=== PATIENT | female | born 1955 | race Caucasian/White ===

== ENCOUNTER → 2017-12-04 08:54 | Outpatient (CLI) | payer MEDICARE, SELFPAY ==
[2017-12-04 10:00] LABS: Add Manual Diff / Slide Review NO; Basophils Percent Auto 0.9 % (0-2); Eosinophils Percent Auto 2.4 % (2-4); Hematocrit 42.1 % (36-46); Hemoglobin 14.3 g/dL (12.0-16.0); Lymphocytes Percent Auto 11.6 % (25-40); Mean Corpuscular HGB Conc 33.9 % (30-36); Mean Corpuscular Hemoglobin 34.9 PG (26-34); Monocytes Percent Auto 11.8 % (3-14); Neutrophils Absolute Auto 4600 /uL (3000-5900); Neutrophils Percent Auto 73.3 % (50-75); Platelet Count 325 X10^3/uL (150-400); Red Blood Cell Count 4.09 X10^6/uL (4.0-5.2); White Blood Cell Count 6.3 X10^3/uL (4.5-11.0)
[2017-12-04 10:12] LABS: Alanine Aminotransferase 25 IU/L (9-52); Albumin 3.9 g/dL (3.5-5.0); Albumin Globulin Ratio 1.4 (1.0-2.8); Alkaline Phosphatase 91 U/L (38-126); Aspartate Aminotransferase 20 IU/L (14-36); BUN Creatinine Ratio 17.5 (6-22); Bilirubin Total 0.4 mg/dL (0.2-1.3); Blood Urea Nitrogen 14 mg/dL (7-17); Calcium 9.6 mg/dL (8.4-10.2); Carbon Dioxide 32 mmol/L (22-32); Chloride 101 mmol/L (98-107); Estimated Glomerular Filt Rate > 60.0 mL/min (>60); Globulin 2.7 g/dL (1.7-4.1); Glucose 106 mg/dL (80-110); HEMOLYSIS < 15 (0-50); Sodium 140 mmol/L (137-145); Total Protein 6.6 g/dL (6.3-8.2)
--- NOTE | 2017-12-04 10:18 | DI.CT.S_ITS ---
PROCEDURE: CT CHEST ABD PEL W CON INDICATIONS: SURVEILLANCE LYMPHOMA TECHNIQUE: After the administration of oral and intravenous contrast, 5 mm thick sections acquired from the lung apices to the symphysis. 5 mm coronal and sagittal reformats were performed, with additional 7 mm coronal MIP reformats through the lungs. For radiation dose reduction, the following was used: automated exposure control, adjustment of mA and/or kV according to patient size. COMPARISON: [facility], [place], PET/CT SKULL BASE TO MID THIGH, 05/31/2017, 9:57. [facility], CT, ABDOMEN/PELVIS WITH CONTRAST, 04/18/2016, 9:21. [facility], CT, ABDOMEN/PELVIS WITH CONTRAST, 11/20/2016, 10:38. [facility], CT, ABDOMEN/PELVIS WITH CONTRAST, 10/03/2015, 10:23. [facility], CT, ABDOMEN W&WO CONTRAST, 05/18/2015, 9:58. [facility], CT, ABDOMEN WITH CONTRAST, 03/11/2017, 10:38. [facility], CT, CHEST/ABD/PEL WITH CONTRAST, 05/24/2015, 9:54. FINDINGS: Image quality: Excellent. CHEST: Lungs and pleura: No acute airspace opacities. No pleural effusions or pneumothorax. Central and peripheral airways appear patent and normal in caliber. Mediastinum: Heart size is normal. No pericardial effusion. No mediastinal or hilar adenopathy by size criteria. Thoracic aorta and central pulmonary arteries are normal in size. Esophagus is normal in caliber. No hiatal hernia. Chest wall: There is a left Port-A-Cath, the tip of which is at the cavoatrial junction. No axillary or supraclavicular adenopathy by size criteria. Thyroid gland is unremarkable. ABDOMEN: Solid organs: Liver is normal in size and enhancement. Gallbladder is unremarkable. Biliary system is non dilated. Pancreas enhances normally. The spleen is absent and multiple small splenules are present in the splenic fossa. An intermediate density 8 mm diameter right adrenal gland nodule is unchanged when compared with the study dated 10/03/15 and may represent a small adenoma. No left adrenal nodules. Kidneys demonstrate normal size and enhancement, without hydronephrosis. There 2-3 mm diameter nonobstructing renal calculi bilaterally. There is a left upper pole subcentimeter renal cysts. Peritoneum and bowel: Bowel loops demonstrate normal wall thickness and caliber. The appendix is thin walled and contrast-filled. No free fluid or air. Nodes and vessels: No retroperitoneal adenopathy. Fat stranding at the mesenteric root is redemonstrated, similar to multiple prior studies. 2 adjacent lobulated soft tissue masses within the left abdomen and a soft tissue nodule within the anterior pelvis are unchanged when compared with the study dated 04/18/16. These nodules did not demonstrate increased metabolic activity on the PET CT dated 05/31/17. Subcentimeter left lower quadrant soft tissue nodules are also redemonstrated. Aorta and inferior vena cava are normal in size. There are scattered atheromatous calcifications throughout the aorta and iliac arteries bilaterally. Miscellaneous: No ventral hernias. PELVIS: Genitourinary: Bladder wall thickness is normal. Miscellaneous: No inguinal hernias or adenopathy. Bones: No suspicious bony lesions. No vertebral body compression fractures. IMPRESSION: 1. Intraperitoneal soft tissue nodules unchanged from multiple prior studies and redemonstrated on the current scan. Of note, these did not demonstrate metabolic activity on the PET CT dated 05/31/17. 2. No new adenopathy or suspicious lesions to suggest tumor recurrence. 3. Nonobstructing nephrolithiasis. Dictated by: Sabiha Lu M.D. on 12/04/2017 at 12:54 Approved by: Sabiha Lu M.D. on 12/04/2017 at 13:06
[2017-12-04 10:44] LABS: Lactate Dehydrogenase 451 U/L (313-618)
== END ==
PROVIDERS: Nurse Practitioner Gerontology; PCP Physician Assistant; Visit Provider Internal Medicine Hematology & Oncology
DX: C85.18 Unspecified B-cell lymphoma, lymph nodes of multiple sites (principal); N20.0 Calculus of kidney
CPT/HCPCS: 36415; 71260; 74177; 80053; 83615; 85025; Q9967

== ENCOUNTER → 2018-06-25 14:00 | Outpatient (CLI) | payer MEDICARE, SELFPAY ==
--- NOTE | 2018-06-25 14:01 | DI.US.S_ITS ---
PROCEDURE: US PELVIC COMPLETE INDICATIONS: abnormal vaginal discharge TECHNIQUE: Real-time scanning was performed of the pelvic organs, with image documentation. Additional endovaginal scanning was necessary due to incomplete visualization of the adnexal and endometrial structures by transabdominal scanning. COMPARISON: None. FINDINGS: Transabdominal scanning: Limited scanning through the kidneys shows no hydronephrosis. No pathologic free abdominal or pelvic fluid. Incidental mode is made of a nonobstructive stone at the lower pole of the right kidney at 4.5 mm and measuring 6.1 mm at the upper pole of the left kidney Endovaginal scanning: Uterus: Uterus is normal in size at 2.5 x 4.2 by 6.1 cm. The endometrium measures 4.5 mm in combined thickness. There is an myometrial fibroid measuring 1.0 x 1.0 x 1.2 cm on the right posteriorly Ovaries: Normal bilaterally measuring 1.7 x 0.8 x 1.0 cm on the right and 1.6 x 0.9 x 1.2 cm on the left IMPRESSION: Single small uterine fibroid noted posteriorly on the right measuring only 1.2 cm in maximal dimension. Endometrial lining is normal in thickness at 4.5 mm. Ovaries bilaterally appear normal. Note is made of bilateral nonobstructive calculi involving the kidneys inferiorly measuring 4.5 mm on the right and superiorly measuring 6.1 mm on the left. Dictated by: Aman Malone M.D. on 06/25/2018 at 16:58 Approved by: Aman Malone M.D. on 06/25/2018 at 17:07
== END ==
PROVIDERS: Family Provider Physician Assistant; PCP Physician Assistant; Visit Provider Physician Assistant
DX: N89.8 Other specified noninflammatory disorders of vagina (principal); D25.9 Leiomyoma of uterus, unspecified; N20.0 Calculus of kidney
CPT/HCPCS: 76830; 76856

== ENCOUNTER → 2018-08-02 11:48 | Outpatient (CLI) | payer MEDICARE, SELFPAY | PROVIDERS: Family Provider Physician Assistant; PCP Physician Assistant; Visit Provider Physician Assistant | DX: R07.0 Pain in throat (principal) | CPT/HCPCS: 87070 ==

== ENCOUNTER → 2018-08-12 16:09 | Outpatient (CLI) | payer MEDICARE, SELFPAY | PROVIDERS: Family Provider Physician Assistant; PCP Physician Assistant; Visit Provider Obstetrics & Gynecology ==

== ENCOUNTER → 2019-01-14 12:17 | Outpatient (CLI) | payer MEDICARE, SELFPAY ==
--- NOTE | 2019-01-14 12:22 | DI.RAD.S_ITS ---
PROCEDURE: XR SHOULDER RT MIN 2V INDICATIONS: h/o lymphoma, right shoulder pain TECHNIQUE: 3 views of the shoulder were acquired. COMPARISON: [facility], , SHOULDER MINIMUM 2VIEW RIGHT, 11/10/2015, 15:08. FINDINGS: Bones: No acute fractures or dislocations. No suspicious bony lesions. There is mild-moderate hypertrophic osteoarthritic changes of the right acromioclavicular joint. Coracoclavicular and acromioclavicular intervals are maintained. Visualized ribs appear intact. Soft tissues: No suspicious soft tissue calcifications. IMPRESSION: Right shoulder without acute radiographic abnormalities or suspicious intraosseous lesions. Mild to moderate right acromioclavicular osteoarthrosis. Dictated by: Jose De La Paz M.D. on 01/14/2019 at 13:48 Approved by: Jose De La Paz M.D. on 01/14/2019 at 13:49
== END ==
PROVIDERS: Family Provider Physician Assistant; PCP Physician Assistant
DX: C85.18 Unspecified B-cell lymphoma, lymph nodes of multiple sites (principal); M25.511 Pain in right shoulder; M19.011 Primary osteoarthritis, right shoulder
CPT/HCPCS: 73030

== ENCOUNTER 2019-05-14 08:38 | Day surgery (SDC) | payer MEDICARE, SELFPAY ==
--- NOTE | 2019-05-14 | PATH_ITS ---
[facility] Accession Number: [id number] . 01 Material submitted: . colon - COLON POLYP AT 30 CM . 02 Diagnosis: Colon, Polyp at 30 cm, Biopsy: Hyperplastic polyp. V 05/15/2019 1256 Local . 02 Electronically signed: . Gypsy Mar MD, Pathologist NPI- [id number] . 01 Gross description: . COLON POLYP AT 30 CM: Received in formalin are 3 fragment(s) of sotomayor, soft tissue measuring 0.1 x 0.1 x 0.1 cm to 0.3 x 0.2 x 0.2 cm submitted entirely in 1 cassette(s) [place] [place] 05/14/2019 1923 Local . 02 Pathologist provided ICD-10: K63.5 . 02 CPT . 986423 Performed at: 01 [facility] [address] [id number] MD Adrian Watkins MD Phone: [phone] Performed at: 02 [facility] [address] [place], [place] [id number] MD Gypsy Mar MD Phone: [phone]
[2019-05-14] MEDS: SODIUM CHLORIDE 0.9% 1,000 ML 200 ML IV (08:51)
[2019-05-14 09:02] VITALS: BP 120/83; PULSE 95; RESP 16; TEMP 36.6; O2SAT 99; BMI 24.3
--- NOTE | 2019-05-14 09:33 | PM.HP.1 ---
History of Present Illness History of Present Illness Date Patient Seen: 05/14/19 Time Patient Seen: 09:34 Chief complaint: 01125 Narrative: Patient is a woman here for screening colonoscopy. Her last exam was 5 years ago. She has a personal history of polyps and a brother of colon cancer. Patient History Medical History Anxiety (Chronic ~2014) Carpal tunnel syndrome (Chronic ~1999) Chicken pox (Resolved) Depression (Chronic) Hemorrhoid (Chronic) Kidney stones (Chronic) Lymphoma (Chronic) Measles (Resolved) Mumps (Resolved) Osteoarthritis (Chronic ~1999) Polio (Resolved) Restless leg syndrome (Chronic ~2001) Rosacea (Chronic) Surgical History Anesthesia (Resolved) Colon polyps (Resolved ~2012) History of lymph node excision (Resolved ~2014) History of splenectomy (Resolved ~1969) History of surgery (Resolved ~2014) Status post endometrial ablation (Resolved ~1999) Family & Social History Family History Father History of heart disease Mother Diabetes mellitus History of heart disease Hypertension Brother Cancer Sister Cervical cancer Grandfather History of heart disease Grandmother No problems noted. Grandfather No problems noted. Grandmother No problems noted. Family/Other Cancer Social History: household members spouse Tobacco & Substance use: Smoking Status Current every day smoker alcohol intake current Meds Home Medications and Allergies Home Medications Medication Instructions Recorded Confirmed Type ibuprofen 800 mg PO TIDP PRN #90 tab 06/24/18 05/14/19 Rx mometasone 0.1 % topical cream 1 applictn TOP DAILY PRN gram 12/18/18 05/14/19 History bupropion HCl 300 mg 24 hr tablet, 300 mg PO QDAY #30 tab 03/11/19 05/14/19 Rx extended release olmesartan 20 1 tab PO DAILY #30 tab 03/11/19 05/14/19 Rx mg-hydrochlorothiazide 12.5 mg tablet paroxetine HCl 20 mg tablet 40 mg PO DAILY #60 tab 03/11/19 05/14/19 Rx Allergies Allergy/AdvReac Type Severity Reaction Status Date / Time No Known Drug Allergies Allergy Verified 05/14/19 08:35 Review of Systems Review of Systems ROS Unobtainable: All systems reviewed & are unremarkable except as noted in HPI and below Hematologic/Lymphatic Comments: Patient completed treatment for lymphoma about 2 years ago Exam Vital Signs (past 8 hours): - 05/14/19 09:02 Temperature 97.8 F Pulse Rate 95 H Respiratory Rate 16 Blood Pressure 120/83 Pulse Oximetry 99 Oxygen Delivery Method Room Air Narrative Exam Narrative: Pleasant cooperative patient no apparent distress. Lungs are clear to auscultation. No rales or rhonchi. Heart regular rate and rhythm no murmur gallop. Abdomen is soft nontender without mass. No obvious hernias. Patient is alert and oriented x3. Assessment & Plan Assessment & Plan narrative: The patient for a screening colonoscopy. I have discussed the procedure with them. Risks of bleeding, perforation which would necessitate major operation, failure to find remove all lesions, the potential tattoo were all discussed. All questions were answered. They wished to proceed.
--- NOTE | 2019-05-14 09:38 | PM.PREOP ---
Pre-operative Note Interval Note History & Physical reviewed/Exam performed by Physician: Yes Changes to H&P: No ASA Class (for procedural sedation): II
--- NOTE | 2019-05-14 10:18 | PM.OP.ENDO ---
Operative Date/Time/Diagnoses Date of procedure: 05/14/19 Time of procedure: 10:18 Pre-op diagnosis: Screening exam. Last exam 5 years ago. Family history of colon cancer and history of polyps. Post-op diagnosis: same (Polyp at 30 cm) Procedure & Clinicians Study performed: Colonoscopy with cold biopsy Same procedure as scheduled: Yes Indications: Screening Surgeon: Dylon Menjivar Procedure Notes SCOAP/Timeout: Performed Procedure in detail: The patient was placed in the left lateral decubitus position and underwent IV sedation directed by the surgeon consisting of fentanyl and Versed. Digital exam was unremarkable. The scope was inserted and advanced through the rectum into the sigmoid, descending, transverse, and ascending colon. Small polyp at 30 cm from the anal verge was identified removed on the way in.. The cecum was reached identified by the ileocecal valve and the appendiceal opening. The ileocecal valve was successfully cannulated. The terminal ileum was normal in appearance. The scope was gradually brought out. No other Polyps were found. The scope ultimately was retroflexed in the rectum. The appearance was normal. The scope was removed and the patient tolerated the procedure well. Prep was very good. Patient was uncomfortable during the procedure and consideration should be given to providing deep sedation in the future Scope withdrawal time: 6-1/2 minutes Sedation minutes: 21 Findings: polyp (One small polyp at 30 cm) Specimen(s): other (Polyps) Complications: none Post-procedure Recommendations: Colonscopy in 5 years (Due to family history of colon cancer and personal history of polyps) Follow up: as needed Disposition: PACU
[2019-05-14] MEDS: MIDAZOLAM 5 MG/5 ML VIAL IV (10:20)
[2019-05-14 10:21] VITALS: BP 107/74; PULSE 86; RESP 12; TEMP 36.5; O2SAT 92
[2019-05-14] MEDS: fentaNYL 250 MCG/5 ML INJ IV (10:21)
[2019-05-14 10:26] VITALS: BP 111/75; PULSE 82; RESP 12; O2SAT 92
[2019-05-14 10:31] VITALS: BP 121/90; PULSE 79; RESP 12; O2SAT 93
[2019-05-14 10:33] VITALS: PULSE 77; RESP 14; TEMP 36.2; O2SAT 92
[2019-05-14 11:20] VITALS: BP 126/80; PULSE 73; RESP 16; TEMP 36.4; O2SAT 100
== END 2019-05-14 11:51 | disposition home or self-care (01) ==
PROVIDERS: PCP Physician Assistant; Visit Provider Specialist
PROC: 0DJD8ZZ Inspection of Lower Intestinal Tract, Via Natural or Artificial Opening Endoscopic (ICD-10-PCS; CPT 45378; principal; 2019-05-14 09:45)
DX: Z12.11 Encounter for screening for malignant neoplasm of colon (principal); Z86.010 Personal history of colon polyps; Z80.0 Family history of malignant neoplasm of digestive organs; F41.9 Anxiety disorder, unspecified; F32.9 Major depressive disorder, single episode, unspecified; F17.210 Nicotine dependence, cigarettes, uncomplicated; K63.5 Polyp of colon
CPT/HCPCS: 45380; 99152; J2250; J3010

== ENCOUNTER → 2019-07-17 08:25 | Outpatient (CLI) | payer MEDICARE, SELFPAY ==
--- NOTE | 2019-07-17 08:26 | DI.CT.S_ITS ---
PROCEDURE: CT CHEST ABD PEL W CON INDICATIONS: follicular lymphoma, DLBCL TECHNIQUE: After the administration of oral and intravenous contrast, 5 mm thick sections acquired from the lung apices to the symphysis. 5 mm coronal and sagittal reformats were performed, with additional 7 mm coronal MIP reformats through the lungs. For radiation dose reduction, the following was used: automated exposure control, adjustment of mA and/or kV according to patient size. COMPARISON: [facility], CT, ABDOMEN/PELVIS WITH CONTRAST, 11/20/2016, 10:38. [facility], [place], PET/CT SKULL BASE TO MID THIGH, 05/31/2017, 9:57. [facility], CT, CT CHEST ABD PEL W CON, 12/04/2017, 10:14. FINDINGS: Image quality: Excellent. CHEST: Lungs and pleura: There is biapical scarring. No acute airspace opacities. No pleural effusions or pneumothorax. Central and peripheral airways appear patent and normal in caliber. Mediastinum: Heart size is normal. No pericardial effusion. No mediastinal or hilar adenopathy by size criteria. Thoracic aorta and central pulmonary arteries are normal in size. Esophagus is normal in caliber. No hiatal hernia. Chest wall: No axillary or supraclavicular adenopathy by size criteria. Thyroid gland is within normal limits. Left chest wall Port-A-Cath tip is in SVC. ABDOMEN: Solid organs: Liver is normal in size and enhancement. Mild hepatic steatosis is seen. Gallbladder is within normal limits. There is no intrahepatic biliary ductal dilatation. Prominent common bile duct is seen and measures up to 1.4 cm in diameter in proximal to mid common bile. No intraluminal filling defect is seen. Pancreas enhances normally. Spleen is normal in size and enhancement. Thickened left adrenal gland is again seen, not significantly changed from prior study. Previously described 8 mm inferior right adrenal nodule is unchanged and likely represent adrenal adenoma.. Kidneys demonstrate normal size and enhancement, without hydronephrosis. Bilateral nonobstructing renal calculi are again seen and measures up to 4.5 mm in size in the pole of left kidney. Peritoneum and bowel: Bowel loops demonstrate normal wall thickness and caliber. No free fluid or air. Mild fecal stasis in the colon is seen. There is questionable proximal to mid gastric wall thickening, which may be due to underdistention. No definite discrete gastric wall mass is seen. Nodes and vessels: No retroperitoneal adenopathy by size criteria. Previously described mild stranding near mesenteric root is essentially unchanged. Previously described 2 adjacent lobulated soft tissue masses within left abdomen and in left anterior lower pelvis remains unchanged in size and appearance, measures up to 2.6 x 1.8 cm in size anterior to the ascending colon. Left anterior lower pelvic nodule measures 1.4 x 1.1 cm in size. Aorta and inferior vena cava are normal in size. Miscellaneous: No ventral hernias. PELVIS: Genitourinary: Bladder wall thickness is normal. Miscellaneous: No inguinal hernias or adenopathy. Bones: No suspicious bony lesions. No vertebral body compression fractures. IMPRESSION: 1. Stable appearing peritoneal soft tissue masses not significantly changed in size and appearance from prior studies and show no increased metabolic activity on previous PET CT scan. 2. Stable ectasia of proximal to mid common bile duct also unchanged from prior studies. 3. No gross lymphadenopathy is seen in chest, abdomen or pelvis. Dictated by: Glenn Osborne M.D. on 07/17/2019 at 10:09 Approved by: Yann Winston M.D. on 07/17/2019 at 12:13
== END ==
PROVIDERS: PCP Physician Assistant; Referring Provider Internal Medicine Hematology & Oncology; Visit Provider Internal Medicine Hematology & Oncology
DX: C83.38 Diffuse large B-cell lymphoma, lymph nodes of multiple sites (principal); K76.0 Fatty (change of) liver, not elsewhere classified; E27.9 Disorder of adrenal gland, unspecified; N20.0 Calculus of kidney
CPT/HCPCS: 71260; 74177; Q9967

== ENCOUNTER → 2021-03-22 14:24 | Outpatient (CLI) | payer MEDICARE, SELFPAY ==
[2021-03-22 15:01] LABS: COVID19 -Nasal RAPID Negative (Negative)
== END ==
PROVIDERS: PCP Registered Nurse Diabetes Educator; Visit Provider Physician Assistant
DX: Z20.822 Contact with and (suspected) exposure to COVID-19 (principal)
CPT/HCPCS: 87635

== ENCOUNTER → 2021-03-22 14:57 | Outpatient (CLI) | payer MEDICARE, SELFPAY ==
--- NOTE | 2021-03-22 14:58 | DI.RAD.S_ITS ---
PROCEDURE: XR CHEST 2V INDICATIONS: Cough x1mo, bronchitis vs PNA? hx of lymphoma TECHNIQUE: 2 views of the chest were acquired. COMPARISON: None. FINDINGS: Surgical changes and devices: None. Lungs and pleura: Lungs are clear. No pleural effusions or pneumothorax. Mediastinum: Mediastinal contours are normal. Heart size is normal. Bones and chest wall: No suspicious bony abnormalities. Soft tissues appear unremarkable. IMPRESSION: No acute cardiopulmonary process demonstrated radiographically. Dictated by: Adrián Mccabe M.D. on 03/22/2021 at 14:08 Approved by: Adrián Mccabe M.D. on 03/22/2021 at 14:08
== END ==
PROVIDERS: PCP Registered Nurse Diabetes Educator; Referring Provider Registered Nurse Diabetes Educator; Visit Provider Registered Nurse Diabetes Educator
DX: J06.9 Acute upper respiratory infection, unspecified (principal); Z20.822 Contact with and (suspected) exposure to COVID-19; Z85.72 Personal history of non-Hodgkin lymphomas
CPT/HCPCS: 71046; 87635

== ENCOUNTER → 2021-03-30 10:30 | Outpatient (CLI) | payer MEDICARE, SELFPAY | PROVIDERS: PCP Registered Nurse Diabetes Educator; Referring Provider Physician Assistant; Visit Provider Physician Assistant | DX: J02.9 Acute pharyngitis, unspecified (principal) | CPT/HCPCS: 87070 ==

== ENCOUNTER → 2022-02-13 12:14 | Outpatient (CLI) | payer MEDICARE, SELFPAY ==
[2022-02-13 13:54] LABS: Influenza A - CEPHEID Flu A NEGATIVE (NEGATIVE); Influenza B - CEPHEID Flu B NEGATIVE (NEGATIVE); Respiratory Syncytial Virus Negative (Negative)
[2022-02-13 14:17] LABS: COVID-19 CEPHEID PCR (VTM/NP) Negative (Negative)
== END ==
PROVIDERS: PCP Registered Nurse Diabetes Educator; Visit Provider Student in an Organized Health Care Education/Training Program
DX: R05.9 Cough, unspecified (principal)
CPT/HCPCS: 0241U

== ENCOUNTER → 2022-02-13 12:51 | Outpatient (CLI) | payer MEDICARE, SELFPAY ==
--- NOTE | 2022-02-13 12:57 | DI.RAD.S_ITS ---
PROCEDURE: XR CHEST 2V INDICATIONS: productive cough x 7days worsening, lymphoma/smoknghx TECHNIQUE: 2 views of the chest were acquired. COMPARISON: [facility], , XR CHEST 2V, 03/22/2021, 14:51. FINDINGS: Surgical changes and devices: Left Port-A-Cath is unchanged. Lungs and pleura: Lungs are clear. No pleural effusions or pneumothorax. Mediastinum: Mediastinal contours are normal. Heart size is normal. Bones and chest wall: No suspicious bony abnormalities. Soft tissues appear unremarkable. IMPRESSION: No acute cardiopulmonary findings. Dictated by: Sabiha Lu M.D. on 02/13/2022 at 13:36 Approved by: Sabiha Lu M.D. on 02/13/2022 at 13:36
== END ==
PROVIDERS: PCP Registered Nurse Diabetes Educator; Referring Provider Student in an Organized Health Care Education/Training Program; Visit Provider Student in an Organized Health Care Education/Training Program
DX: R05.8 Other specified cough (principal); R53.83 Other fatigue
CPT/HCPCS: 0241U; 71046

== ENCOUNTER → 2022-02-27 18:29 | Outpatient (ROUT) | payer MEDICARE, SELFPAY | PROVIDERS: PCP Registered Nurse Diabetes Educator; Visit Provider Registered Nurse Diabetes Educator | DX: N94.9 Unspecified condition associated with female genital organs and menstrual cycle (principal) | CPT/HCPCS: 87255 ==

== ENCOUNTER → 2022-03-09 08:52 | Outpatient (CLI) | payer MEDICARE, SELFPAY ==
[2022-03-09 09:57] LABS: Add Manual Diff / Slide Review NO; Basophils Absolute Auto 100 /uL (0-100); Basophils Percent Auto 0.6 % (0-2); Eosinophils Absolute Auto 300 /uL (0-450); Eosinophils Percent Auto 2.7 % (2-4); Hematocrit 39.5 % (36-46); Lymphocytes Absolute Auto 1900 /uL (1100-4500); Lymphocytes Percent Auto 15.6 % (25-40); Mean Corpuscular HGB Conc 32.8 % (30-36); Mean Corpuscular Volume 97.7 fL (80-100); Monocytes Absolute Auto 1000 /uL (0-900); Monocytes Percent Auto 8.4 % (3-14); Neutrophils Absolute Auto 8800 /uL (1500-7000); Neutrophils Percent Auto 72.7 % (50-75); Platelet Count 390 X10^3/uL (150-400); Red Blood Cell Count 4.05 X10^6/uL (4.0-5.2); Red Cell Distribution Width 14.7 % (11.6-14.8); White Blood Cell Count 12.1 X10^3/uL (4.5-11.0)
[2022-03-09 10:10] LABS: Alanine Aminotransferase 17 IU/L (<35); Albumin 3.7 g/dL (3.5-5.0); Albumin Globulin Ratio 1.4 (1.0-2.8); Alkaline Phosphatase 82 U/L (38-126); Aspartate Aminotransferase 18 IU/L (14-36); BUN Creatinine Ratio 28.2 (6-22); Bilirubin Total 0.5 mg/dL (0.2-1.3); Blood Urea Nitrogen 29 mg/dL (7-17); Calcium 9.2 mg/dL (8.4-10.2); Carbon Dioxide 30 mmol/L (22-32); Chloride 102 mmol/L (98-107); Cholesterol 179 mg/dL (140-199); Estimated Glomerular Filt Rate > 60 mL/min (>60); Globulin 2.7 g/dL (1.7-4.1); Glucose 99 mg/dL (80-110); HDL Cholesterol 67 mg/dL (40-60); HEMOLYSIS 25 (0-50); LDL Cholesterol Calculated 87 mg/dL (<100); Potassium 4.2 mmol/L (3.4-5.1); Sodium 138 mmol/L (137-145); Total Protein 6.4 g/dL (6.3-8.2); Triglycerides 125 mg/dL (35-150)
[2022-03-09 10:42] LABS: TSH w/ Reflex to FT4 2.66 uIU/mL (0.47-4.68)
== END ==
PROVIDERS: PCP Registered Nurse Diabetes Educator; Referring Provider Registered Nurse Diabetes Educator; Visit Provider Registered Nurse Diabetes Educator
DX: I10 Essential (primary) hypertension (principal)
CPT/HCPCS: 36415; 80053; 80061; 84443; 85025

== ENCOUNTER → 2022-06-01 12:11 | Outpatient (CLI) | payer MEDICARE, SELFPAY ==
--- NOTE | 2022-06-01 12:14 | DI.RAD.S_ITS ---
PROCEDURE: XR KUB INDICATIONS: kidney stones TECHNIQUE: One view of the abdomen acquired. COMPARISON: [facility] Ultrasound, US, US ABDOMEN COMPLETE, 04/04/2022, 14:19. [facility], CT, CT CHEST ABD PEL W CON, 07/17/2019, 9:25. FINDINGS: Surgical changes and devices: None. Bowel: Bowel gas pattern is normal. Soft tissues: No new suspicious abdominal calcifications are present compared to the prior CT scanning from June of 2019. The current study shows a single 2 x 3 mm small calculus in the expected region of the mid right kidney and an 3 mm upper and 2 mm lower pole calculus in the expected region of the collecting system of the left kidney. These have not changed in size from prior CT scanning and remains small overall. Visualized solid organ contours appear normal in size. Bones: No suspicious bony lesions. IMPRESSION: Stable appearing small bilateral nonobstructive calculi involving the mid kidney on the right and the upper and lower thirds of the left kidney. These have not been obstructive on prior CT and ultrasound scanning. Dictated by: Aman Malone M.D. on 06/01/2022 at 14:22 Approved by: Aman Malone M.D. on 06/01/2022 at 14:25
== END ==
PROVIDERS: PCP Registered Nurse Diabetes Educator; Referring Provider Urology; Visit Provider Urology
DX: N20.0 Calculus of kidney (principal)
CPT/HCPCS: 74018

== ENCOUNTER → 2022-06-04 16:04 | Outpatient (CLI) | payer MEDICARE, SELFPAY ==
[2022-06-04 17:08] LABS: BUN Creatinine Ratio 16.7 (6-22); Blood Urea Nitrogen 19 mg/dL (7-17); Carbon Dioxide 31 mmol/L (22-32); Chloride 103 mmol/L (98-107); Estimated Glomerular Filt Rate 53 mL/min (>60); Glucose 76 mg/dL (80-110); HEMOLYSIS < 15 (0-50); Potassium 3.8 mmol/L (3.4-5.1); Sodium 140 mmol/L (137-145)
== END ==
PROVIDERS: PCP Registered Nurse Diabetes Educator; Referring Provider Urology; Visit Provider Urology
DX: R31.29 Other microscopic hematuria (principal); N20.0 Calculus of kidney; F17.200 Nicotine dependence, unspecified, uncomplicated
CPT/HCPCS: 36415; 80048; 81002; 99214

== ENCOUNTER → 2022-06-13 14:58 | Outpatient (CLI) | payer MEDICARE, SELFPAY ==
--- NOTE | 2022-06-13 15:01 | DI.CT.S_ITS ---
PROCEDURE: CT IVP A/P W/WO INDICATIONS: Other microscopic hematuria TECHNIQUE: Optional 5 mm thick noncontrast images acquired from the diaphragm to the symphysis pubis. After the administration of intravenous contrast, 5 mm thick images acquired from the diaphragm to the symphysis pubis after a 10-minute delay. 2 mm thick coronal and sagittal reformats were then performed of the kidneys and ureters. For radiation dose reduction, the following was used: automated exposure control, adjustment of mA and/or kV according to patient size. COMPARISON: [facility], CT, CT CHEST ABD PEL W CON, 07/17/2019, 9:25. FINDINGS: Lower thorax: The lung bases are clear. Heart size normal. No hiatal hernia. Liver: The liver is diffusely decreased in attenuation without focal mass lesion. Biliary system: No calcified cholelithiasis or pericholecystic inflammation. No intra or extrahepatic bile duct dilatation. Pancreas: Unremarkable without mass or inflammation evident. Spleen: Several splenules noted left upper quadrant. Remainder of the spleen is absent Adrenals: Normal morphology and density. Reproductive system: Unremarkable as visualized. Urinary system: Bilateral nonobstructive renal calculi measure up to 4 mm. There is a 1.5 cm left renal hyperdense cyst, slightly enlarged compared to the prior exam. Both kidneys con straightening and straight contrast appropriately without hydronephrosis or obstructing lesion. Gastrointestinal system: Fluid distension and wall thickening the proximal small bowel in the left noted with some mild wall enhancement and small amount of free fluid in the pelvis. No obstruction. Appendix: Normal appendix identified. No evidence of appendicitis. Peritoneal spaces: No mesenteric or retroperitoneal adenopathy. No free air. No free fluid. Peritoneal and soft tissue nodes in the left lower quadrant anterior to the descending colon are similar Vasculature: Aortic atherosclerotic vascular calcification noted without evidence of aneurysm. Abdominal wall: Abdominal wall intact without evidence of ventral or inguinal hernias. Musculoskeletal: Normal bone mineralization. No acute fractures. IMPRESSION: 1. Nonobstructing bilateral renal calculi without hydronephrosis or mass lesion. Stable left renal hyperdense cyst. 2. Stable left lower quadrant peritoneal soft tissue nodules, unchanged from the prior. 3. Proximal small bowel fluid distension with wall enhancement and small amount of free fluid in the pelvis could reflect enteritis if clinically consistent. Approved by: Mitch Sheffield M.D. on 06/13/2022 at 15:47
== END ==
PROVIDERS: PCP Registered Nurse Diabetes Educator; Referring Provider Urology; Visit Provider Urology
DX: N20.0 Calculus of kidney (principal); N28.1 Cyst of kidney, acquired; R31.29 Other microscopic hematuria; R22.2 Localized swelling, mass and lump, trunk
CPT/HCPCS: 74178; Q9967

== ENCOUNTER → 2022-08-13 11:55 | Outpatient (CLI) | payer MEDICARE, SELFPAY ==
--- NOTE | 2022-08-13 11:57 | DI.RAD.S_ITS ---
PROCEDURE: XR KUB INDICATIONS: 2 left-sided kidney stones TECHNIQUE: One view of the abdomen acquired. COMPARISON: [facility], CR, XR KUB, 06/01/2022, 13:21. FINDINGS: Surgical changes and devices: None. Bowel: Bowel gas pattern is normal. Soft tissues: No suspicious abdominal calcifications. Visualized solid organ contours appear normal in size. The known left-sided renal stones are obscured by bowel gas and fecal debris. 3.5 mm stone projects over the superior calyx of the right kidney. Bones: No suspicious bony lesions. IMPRESSION: Known left-sided nephrolithiasis obscured by bowel gas and fecal debris. 3.5 mm right-sided nonobstructing nephrolithiasis. Dictated by: Guy Beatty M.D. on 08/13/2022 at 14:26 Approved by: Guy Beatty M.D. on 08/13/2022 at 14:28
[2022-08-13 21:16] LABS: Appearance Urine UA CLEAR; Bilirubin Urine UA NEGATIVE (NEGATIVE); Color Urine UA YELLOW; Glucose Urine UA NEGATIVE (Negative); Ketones Urine UA NEGATIVE (NEGATIVE); Leukocyte Esterase Urine UA TRACE (NEGATIVE); Nitrite Urine UA NEGATIVE (Negative); Occult Blood Urine UA 2+ (Negative); Protein Urine UA NEGATIVE (Negative); Urobilinogen Urine UA 0.2 E.U./dL (0.2)
[2022-08-13 21:31] LABS: Amorphous Sediment Urine 1+; Bacteria Urine Few (2-10); Culture Indicated Urine Specimen Cultured; RBC Urine 1-5/HPF (0-5/HPF); Squamous Epithelial Cell Urine 1-5 /HPF (0-5/HPF); WBC Urine 5-10/HPF (0-5/HPF)
[2022-08-13 21:32] LABS: pH Urine UA 6.5 (4.5-8.0)
== END ==
PROVIDERS: PCP Registered Nurse Diabetes Educator; Referring Provider Urology; Visit Provider Urology
DX: N20.0 Calculus of kidney (principal); R31.29 Other microscopic hematuria
CPT/HCPCS: 74018; 81001; 87086

== ENCOUNTER 2022-08-21 06:50 | Day surgery (SDC) | payer MEDICARE, SELFPAY ==
[2022-08-21] VITALS (7 sets, daily range): BP systolic 139–168; BP diastolic 84–100; PULSE 66–86; RESP 12–18; TEMP 36.4–36.7; O2SAT 92–98; BMI 23.5
[2022-08-21] MEDS: LACTATED RINGERS 1,000 ML 21 ML IV (07:19)
[2022-08-21] MEDS: SCOPOLAMINE 1 PATCH TOP (07:27)
--- NOTE | 2022-08-21 07:39 | PM.PREOP ---
Pre-operative Note COVID-19 COVID-19 status: Not tested Criteria for continued procedure: Delay expected to result in less-positive ultimate med/surg outcome and Non-surgical alternatives not available or appropriate per current SOC Interval Note History & Physical reviewed/Exam performed by Physician: Yes Changes to H&P: No
[2022-08-21] MEDS: CEFAZOLIN 2 GM/100 ML PREMIX 100 ML IV (07:47)
--- NOTE | 2022-08-21 08:10 | SUR.OPER ---
Lithotomy on ESWL table, head on pillow, arms padded with gel pads and placed at sides. Legs secured in padded ESWL table stirrups. Patient warmed with warm blankets.
--- NOTE | 2022-08-21 08:39 | P.OP_ITS ---
Procedure & Clinicians Procedure: Left extracorporeal shockwave lithotripsy with cystoscopy and left ureteral stent placement. Same procedure as scheduled: Yes Indications: This 67-year-old female who was undergoing workup for hematuria was found to have left-sided stones and presents this time for the above procedure. Surgeon: Valerio Blanchard Click Yes if Unassisted: Yes Anesthesia Type: General Operative Notes Findings: Findings: At cystoscopy external genitalia were normal urethral meatus was normal urethra is normal along its length the right and left ureteral orifices were normal position with clear efflux. There were no mucosal lesions or other abnormalities within the bladder. The stones were noted in the upper portion of the kidney and received 1500 shocks at level 7 appearing to fragment completely. A 7 Ecuadorean by multi length stent was left in good position in the left collecting system without a string. No other abnormalities were noted. Closure Type: not applicable Specimen(s): none sent Prosthetic devices, grafts, tissues, transplants, or devices: Seven Ecuadorean by multi length ureteral stent left collecting system no string Estimated Blood Loss (mL): 0 Blood products transfused: none Procedure in detail: Procedure in detail: After informed consent was obtained, the patient was identified and brought to the operating room where she was placed in the supine position on the Lithotripter. Patient then had anesthesia induced and maintained. Hearing an adequate level anesthesia the patient was then transitioned to the lithotomy position. Once in the lithotomy position she was prepped, draped, prepared for Transurethral procedure. Once again ensuring an adequate level of anesthesia, after time-out and with the patient prepped and draped the cystoscope was inserted through the urethra in the bladder cystoscopy was performed. Once again the left ureteral orifice was identified and a guidewire passed up and into the collecting system under fluoroscopic visualization. With the wire in good position the stent was passed over the wire positioned in the renal pelvis under fluoroscopic visualization and in the bladder under direct vision. With the stent in good position the wire was removed as well as the nylon harness. The position was once again checked and it was excellent therefore the bladder was drained the scope was removed and the stone positioned at F1 via the imaging system. Shockwave were then delivered to the stone up to level 7 for a total of 1500 shocks with periodic reimaging and re localization of the stone to ensure maximal energy delivered to the stone. At 3:00 p.m. shocks shockwave head was rotated out in the stone appeared completely fragmented. At this point the patient was awakened taken to the postanesthesia care unit having tolerated the procedure well. There were no complications the patient will be discharged from the postanesthesia care unit to follow up in my office in approximately 10-14 days. Complications: none Post-operative Condition: stable Disposition: PACU Plan for aftercare: Patient to be discharged to home she is to strain her urine and save any fragments that she collects. At follow-up she will have a KUB.
[2022-08-21] MEDS: ACETAMINOPHEN 325 MG TABLET 975 MG PO (08:59)
[2022-08-21] MEDS: OXYBUTYNIN 5 MG TABLET PO (09:00)
[2022-08-21] MEDS: PHENAZOPYRIDINE 100 MG TABLET 200 MG PO (09:05)
== END 2022-08-21 09:45 | disposition home or self-care (01) ==
PROVIDERS: PCP Registered Nurse Diabetes Educator; Referring Provider Urology; Visit Provider Urology
PROC: (CPT 50590; principal; 2022-08-21 07:45)
PROC: (CPT 52356; 2022-08-21 07:45)
DX: N20.0 Calculus of kidney (principal); R31.29 Other microscopic hematuria; F17.210 Nicotine dependence, cigarettes, uncomplicated
CPT/HCPCS: 52356; J0690; J1100; J2250; J2405; J2704; J3010

== ENCOUNTER → 2022-09-06 11:12 | Outpatient (CLI) | payer MEDICARE, SELFPAY ==
--- NOTE | 2022-09-06 11:13 | DI.RAD.S_ITS ---
PROCEDURE: XR KUB INDICATIONS: Post op ESWL with left ureteral stent placement TECHNIQUE: One view of the abdomen acquired. COMPARISON: [facility], CR, XR KUB, 08/13/2022, 12:01. FINDINGS: Surgical changes and devices: Left ureterovesicular stent is present. Bowel: Bowel gas pattern is normal. Soft tissues: No suspicious abdominal calcifications. No definitive calcifications are noted overlying the renal shadows. The previous 4 mm calcification overlying the right renal shadow is not visualized as cysts area is completely obscured by overlying bowel gas. Visualized solid organ contours appear normal in size. Bones: No suspicious bony lesions. IMPRESSION: Interval ureterovesicular stent without visualized calcifications overlying the renal shadows. Dictated by: Shaye Silva M.D. on 09/06/2022 at 16:39 Approved by: Shaye Silva M.D. on 09/06/2022 at 16:39
== END ==
PROVIDERS: PCP Registered Nurse Diabetes Educator; Referring Provider Urology; Visit Provider Urology
DX: N20.0 Calculus of kidney (principal); R31.29 Other microscopic hematuria; Z96.0 Presence of urogenital implants
CPT/HCPCS: 74018; 81002; 87086

== ENCOUNTER → 2022-09-06 16:13 | Outpatient (CLI) | payer MEDICARE, SELFPAY | PROVIDERS: PCP Registered Nurse Diabetes Educator; Visit Provider Urology | DX: N20.0 Calculus of kidney (principal); R31.29 Other microscopic hematuria | CPT/HCPCS: 87086 ==

== ENCOUNTER → 2022-10-04 13:19 | Outpatient (CLI) | payer MEDICARE, SELFPAY ==
[2022-10-04 14:47] LABS: Calcium 9.1 mg/dL (8.4-10.2); Phosphorous 2.8 mg/dL (2.8-4.1); Uric Acid 5.3 mg/dL (2.5-6.2)
[2022-10-06 12:10] LABS: Calcium 9.2 mg/dL (8.7-10.3); Parathyroid Hormone, Intact 48 pg/mL (15-65)
== END ==
PROVIDERS: PCP Registered Nurse Diabetes Educator; Referring Provider Urology; Visit Provider Urology
DX: N20.0 Calculus of kidney (principal); R31.29 Other microscopic hematuria; Z77.22 Contact with and (suspected) exposure to environmental tobacco smoke (acute) (chronic)
CPT/HCPCS: 36415; 82310; 83970; 84100; 84550

== ENCOUNTER → 2022-11-01 11:34 | Outpatient (CLI) | payer MEDICARE, SELFPAY ==
--- NOTE | 2022-11-01 11:36 | DI.RAD.S_ITS ---
PROCEDURE: XR CHEST 2V INDICATIONS: Increased cough x3 weeks TECHNIQUE: 2 views of the chest were acquired. COMPARISON: [facility], CR, XR CHEST 2V, 02/13/2022, 13:01. [facility], CR, XR CHEST 2V, 03/22/2021, 14:51. FINDINGS: Surgical changes and devices: Left chest wall port tip projects over the cavoatrial junction. Lungs and pleura: Lungs are clear. No pleural effusions or pneumothorax. Mediastinum: Mediastinal contours are normal. Heart size is normal. Bones and chest wall: No suspicious bony abnormalities. Soft tissues appear unremarkable. IMPRESSION: No acute cardiopulmonary process. Dictated by: Guy Beatty M.D. on 11/01/2022 at 12:28 Approved by: Guy Beatty M.D. on 11/01/2022 at 12:28
== END ==
PROVIDERS: PCP Registered Nurse Diabetes Educator; Referring Provider Physician Assistant; Visit Provider Physician Assistant
DX: R05.9 Cough, unspecified (principal)
CPT/HCPCS: 71046

== ENCOUNTER → 2023-04-17 11:28 | Outpatient (CLI) | payer MEDICARE, SELFPAY ==
--- NOTE | 2023-04-17 11:31 | DI.RAD.S_ITS ---
Bone Density Report Name: MATTY ULLOA Age: 68 Sex: Female Ethnicity: White Date of : 1955 Indication: postmenopausal; screening for osteoporosis; history of glucocorticoids; Referring Provider: SERINA CHIU Study: Bone densitometry was performed. Exam Date: April 17, 2023 Accession number: [id number] Bone Density: Region BMD T-score Z-score Classification AP Spine(L1-L4) 0.799 -2.3 -0.4 Osteopenia Femoral Neck (Left) 0.610 -2.2 -0.5 Osteopenia Total Hip (Left) 0.697 -2.0 -0.7 Osteopenia Femoral Neck (Right) 0.595 -2.3 -0.7 Osteopenia Total Hip (Right) 0.674 -2.2 -0.9 Osteopenia Total Hip Mean 0.685 -2.1 -0.8 Osteopenia World Health Organization criteria for BMD impression classify patients as: Normal (T-score at or above -1.0), Osteopenia (T-score between -1.0 and -2.5), or Osteoporosis (T-score at or below -2.5). 10-year Fracture Risk(1): Major Osteoporotic Fracture 19% Hip Fracture 6.8% Reported Risk Factors: [place] (), Neck BMD=0.595, BMI=21.9, smoking, glucocorticoids (1) FRAX(R) Version 3.08. Fracture probability calculated for an untreated patient. Fracture probability may be lower if the patient has received treatment. Impression: The patient has low bone mass, based on the Total Spine T-score. The patient has an estimated ten-year risk of hip fracture of 6.8% and an estimated ten-year risk of major fracture of 19%, based on the WHO FRAX algorithm. The patient has risk factors, including: smoking, history of glucocorticoid therapy. Discussion: BONE DENSITY IS LOW AT ONE OR MORE SKELETAL SITES. THE PATIENT'S BMD AND CLINICAL RISK FACTORS CONTRIBUTE TO THIS PATIENT'S INCREASED RISK OF FRACTURE. This patient's lowest T-score is low at one or more skeletal sites. It meets the World Health Organization's (WHO) criteria for low bone mass (T-score between -1.0 and -2.5). The patient's 10-year risk of hip fracture as calculated by FRAX exceeds the threshold where pharmacological therapy is recommended by the National Osteoporosis Foundation (NOF). However, all treatment decisions require clinical judgment and consideration of individual patient factors, including patient preferences, comorbidities, previous drug use, risk factors not captured in the FRAX model (e.g., frailty, falls, vitamin D deficiency, increased bone turnover, interval significant decline in bone density) and possible under or overestimation of fracture risk by FRAX. The patient should follow a healthful lifestyle (good nutrition with adequate calcium and vitamin D, and appropriate weight-bearing exercise). Follow-Up: Consider a repeat BMD and Vertebral Fracture Assessment (VFA) exam in 2 years or sooner if medically necessary, to reassess this patient's status. Reported by: [facility] RYAN MENDES M.D. on 04/17/2023 12:39:00 PM.
== END ==
PROVIDERS: PCP Registered Nurse Diabetes Educator; Referring Provider Registered Nurse Diabetes Educator; Visit Provider Registered Nurse Diabetes Educator
DX: Z78.0 Asymptomatic menopausal state (principal); M85.88 Other specified disorders of bone density and structure, other site
CPT/HCPCS: 77080

== ENCOUNTER → 2023-08-19 12:20 | Outpatient (CLI) | payer MEDICARE, SELFPAY ==
[2023-08-19 13:11] LABS: Hematocrit 42.6 % (36-46); Hemoglobin 14.3 g/dL (12.0-16.0); Mean Corpuscular HGB Conc 33.5 % (30-36); Mean Corpuscular Hemoglobin 32.3 PG (26-34); Mean Corpuscular Volume 96.3 fL (80-100); Platelet Count 328 X10^3/uL (150-400); Red Blood Cell Count 4.42 X10^6/uL (4.0-5.2); Red Cell Distribution Width 13.5 % (11.6-14.8); White Blood Cell Count 6.6 X10^3/uL (4.5-11.0)
[2023-08-19 13:31] LABS: Alanine Aminotransferase 16 IU/L (<35); Albumin 4.2 g/dL (3.5-5.0); Albumin Globulin Ratio 1.4 (1.0-2.8); Alkaline Phosphatase 86 U/L (38-126); Aspartate Aminotransferase 28 IU/L (14-36); BUN Creatinine Ratio 15.2 (6-22); Bilirubin Total 0.5 mg/dL (0.2-1.3); Blood Urea Nitrogen 19 mg/dL (7-17); Calcium 9.5 mg/dL (8.4-10.2); Carbon Dioxide 35 mmol/L (22-32); Chloride 100 mmol/L (98-107); Cholesterol 178 mg/dL (140-199); Estimated Glomerular Filt Rate 47 mL/min (>60); Globulin 2.9 g/dL (1.7-4.1); Glucose 123 mg/dL (80-110); HDL Cholesterol 48 mg/dL (40-60); HEMOLYSIS < 15 (0-50); LDL Cholesterol Calculated 102 mg/dL (<100); Potassium 3.9 mmol/L (3.4-5.1); Sodium 139 mmol/L (137-145); Total Protein 7.1 g/dL (6.3-8.2); Triglycerides 142 mg/dL (35-150)
[2023-08-19 15:04] LABS: TSH w/ Reflex to FT4 1.57 uIU/mL (0.47-4.68)
[2023-08-19 15:13] LABS: Vitamin D 25 Hydroxy (D3) 31.5 ng/mL (30.0-100.0)
[2023-08-19 18:29] LABS: Hemoglobin A1C% w Est Avg Glu 6.1 % (4.0-6.0)
== END ==
PROVIDERS: PCP Registered Nurse Diabetes Educator; Referring Provider Registered Nurse Diabetes Educator; Visit Provider Registered Nurse Diabetes Educator
DX: I10 Essential (primary) hypertension (principal); M85.80 Other specified disorders of bone density and structure, unspecified site; R73.01 Impaired fasting glucose; F41.8 Other specified anxiety disorders; R53.83 Other fatigue
CPT/HCPCS: 36415; 80053; 80061; 82306; 83036; 84443; 85027

== ENCOUNTER → 2023-08-23 12:55 | Outpatient (CLI) | payer MEDICARE, SELFPAY ==
--- NOTE | 2023-08-23 12:58 | DI.RAD.S_ITS ---
PROCEDURE: XR CHEST 2V INDICATIONS: persistent cough TECHNIQUE: 2 views of the chest were acquired. COMPARISON: [facility], CR, XR CHEST 2V, 11/01/2022, 11:41. FINDINGS: Surgical changes and devices: Interval removal of the left-sided port with abandoned port catheter extending from the subclavian vein into the upper SVC. Lungs and pleura: Lungs are clear. No pleural effusions or pneumothorax. Mediastinum: Mediastinal contours are normal. Heart size is normal. Bones and chest wall: No suspicious bony abnormalities. Soft tissues appear unremarkable. IMPRESSION: 1. No acute cardiopulmonary process 2. Interval removal of the left-sided port with abandoned port catheter extending from the subclavian vein into the upper SVC. This is of no clinical significance. Dictated by: Gayatri Walter M.D. on 08/23/2023 at 14:38 Approved by: Gayatri Walter M.D. on 08/23/2023 at 14:41
== END ==
PROVIDERS: PCP Registered Nurse Diabetes Educator; Referring Provider Registered Nurse Diabetes Educator; Visit Provider Registered Nurse Diabetes Educator
DX: R05.9 Cough, unspecified (principal)
CPT/HCPCS: 71046

== ENCOUNTER → 2023-11-08 15:25 | Outpatient (CLI) | payer MEDICARE, SELFPAY ==
[2023-11-08 19:20] LABS: Blood Urea Nitrogen 23 mg/dL (7-17); Calcium 9.1 mg/dL (8.4-10.2); Carbon Dioxide 25 mmol/L (22-32); Chloride 107 mmol/L (98-107); Estimated Glomerular Filt Rate 49 mL/min (>60); Glucose 88 mg/dL (80-110); HEMOLYSIS < 15 (0-50); Potassium 3.8 mmol/L (3.4-5.1)
[2023-11-08 19:42] LABS: Sodium 139 mmol/L (137-145)
[2023-11-08 20:11] LABS: Vitamin B12 194 pg/mL (239-931)
[2023-11-09 10:53] LABS: Creatinine Urine Random 118.97 mg/dL
[2023-11-09 10:58] LABS: Microalbumin Urine Random 1.6 mg/dL (0-1.6)
== END ==
PROVIDERS: PCP Registered Nurse Diabetes Educator; Referring Provider Registered Nurse Diabetes Educator; Visit Provider Registered Nurse Diabetes Educator
DX: R94.4 Abnormal results of kidney function studies (principal); Z51.81 Encounter for therapeutic drug level monitoring; Z79.899 Other long term (current) drug therapy; K90.9 Intestinal malabsorption, unspecified
CPT/HCPCS: 80048; 82043; 82570; 82607

== ENCOUNTER → 2024-01-27 14:12 | Outpatient (CLI) | payer MEDICARE, SELFPAY ==
[2024-01-27 15:02] LABS: Influenza A - CEPHEID Flu A NEGATIVE (NEGATIVE); Influenza B - CEPHEID Flu B NEGATIVE (NEGATIVE); Respiratory Syncytial Virus Negative (Negative)
[2024-01-27 15:03] LABS: COVID-19 CEPHEID 4-PLEX PCR Negative (Negative)
== END ==
PROVIDERS: PCP Registered Nurse Diabetes Educator; Visit Provider Physician Assistant
DX: R05.1 Acute cough (principal)
CPT/HCPCS: 0241U

== ENCOUNTER → 2024-01-28 16:27 | Outpatient (CLI) | payer MEDICARE, SELFPAY ==
--- NOTE | 2024-01-28 16:29 | DI.RAD.S_ITS ---
PROCEDURE: XR CHEST 2V INDICATIONS: Cough x 3 wks TECHNIQUE: 2 views of the chest were acquired. COMPARISON: [facility], CR, XR CHEST 2V, 08/23/2023, 13:08. FINDINGS: Surgical changes and devices: Abandoned left port catheter extending from the subclavian to the upper SVC, unchanged from prior. Lungs and pleura: Lungs are clear. No pleural effusions or pneumothorax. Mediastinum: Mediastinal contours are normal. Heart size is normal. Bones and chest wall: No suspicious bony abnormalities. Soft tissues appear unremarkable. IMPRESSION: No acute cardiopulmonary abnormality is seen. Approved by: Evelyn Chow M.D.,Ph.D. on 01/29/2024 at 1:43
== END ==
PROVIDERS: PCP Registered Nurse Diabetes Educator; Referring Provider Physician Assistant; Visit Provider Physician Assistant
DX: R05.9 Cough, unspecified (principal)
CPT/HCPCS: 71046

== ENCOUNTER → 2024-02-11 15:19 | Outpatient (CLI) | payer MEDICARE, SELFPAY ==
[2024-02-11 16:57] LABS: BUN Creatinine Ratio 11.3 (6-22); Blood Urea Nitrogen 14 mg/dL (7-17); Calcium 9.7 mg/dL (8.4-10.2); Carbon Dioxide 31 mmol/L (22-32); Chloride 99 mmol/L (98-107); Estimated Glomerular Filt Rate 48 mL/min (>60); Glucose 86 mg/dL (80-110); HEMOLYSIS < 15 (0-50); Potassium 4.1 mmol/L (3.4-5.1); Sodium 137 mmol/L (137-145)
[2024-02-11 17:50] LABS: Vitamin B12 471 pg/mL (239-931)
== END ==
PROVIDERS: PCP Registered Nurse Diabetes Educator; Referring Provider Registered Nurse Diabetes Educator; Visit Provider Registered Nurse Diabetes Educator
DX: E53.8 Deficiency of other specified B group vitamins (principal); N18.30 Chronic kidney disease, stage 3 unspecified
CPT/HCPCS: 36415; 80048; 82607

== ENCOUNTER → 2024-03-05 18:39 | Outpatient (CLI) | payer MEDICARE, SELFPAY ==
[2024-03-05 20:17] LABS: Influenza A - CEPHEID Flu A NEGATIVE (NEGATIVE); Influenza B - CEPHEID Flu B NEGATIVE (NEGATIVE); Respiratory Syncytial Virus Negative (Negative)
[2024-03-05 20:18] LABS: COVID-19 CEPHEID 4-PLEX PCR Negative (Negative)
== END ==
PROVIDERS: PCP Registered Nurse Diabetes Educator; Visit Provider Physician Assistant Surgical
DX: R05.1 Acute cough (principal)
CPT/HCPCS: 0241U

== ENCOUNTER 2024-03-05 18:41 | Emergency (ER) | payer MEDICARE, SELFPAY ==
[2024-03-05] VITALS (12 sets, daily range): BP systolic 128–153; BP diastolic 63–79; PULSE 72–90; RESP 18–24; TEMP 36.8–37.1; O2SAT 92–99; BMI 22.2
--- NOTE | 2024-03-05 19:33 | DI.RAD.S_ITS ---
PROCEDURE: XR CHEST 2V INDICATIONS: COUGH X 2 MONTHS, FEVER TODAY TECHNIQUE: 2 views of the chest were acquired. COMPARISON: [facility], , XR CHEST 2V, 01/28/2024, 16:29. FINDINGS: Surgical changes and devices: Left-sided central venous catheter tip is in SVC. Lungs and pleura: Chronic emphysematous changes are seen. No focal infiltrate. No pleural effusions or pneumothorax. Mediastinum: Mediastinal contours are normal. Heart size is normal. Bones and chest wall: No suspicious bony abnormalities. Soft tissues appear unremarkable. IMPRESSION: No focal infiltrate, pleural effusion or pneumothorax. Dictated by: Yann Winston M.D. on 03/05/2024 at 19:55 Approved by: Yann Winston M.D. on 03/05/2024 at 19:56
--- NOTE | 2024-03-05 19:33 | ED_ITS ---
HPI - URI/Sore Throat General Chief Complaint: Upper Respiratory Symptoms Stated Complaint: sent by [facility], fever, abnormal vitals Time Seen by Provider: 03/05/24 18:58 Source: patient Mode of arrival: Ambulatory History of Present Illness HPI Narrative: 68-year-old female with pmh lymphoma (remission x 3 years), tobacco use presents for cough, reports of fever and abnormal vital signs from the walk-in clinic. Patient states that several months ago she began to have a hacking, productive cough. She states that she was told that she had bronchitis by her primary doctor and was discharged with inhalers. Patient states that the inhaler she was prescribed was several 100 dollars and she could not afford it, so she was not been on any medications for this condition. For the last 2-3 months she has had worsening productive cough. She initially went to the walk-in clinic because she was concerned that her cough was not getting better. She was reported to have a fever at the walk-in clinic and referred to the emergency department out of concerns for possible pneumonia. Patient states that she still smokes 2-3 cigarettes per day Related Data Home Medications Medication Instructions Recorded Confirmed paroxetine HCl 40 mg tablet 40 mg PO DAILY 06/24/23 02/12/24 lansoprazole 30 mg capsule,delayed 30 mg PO DAILY 08/21/23 02/12/24 release (Prevacid) Previous Rx's Medication Instructions Recorded fluticasone propionate 50 1 spray intranasal DAILY #16 grams 08/29/23 mcg/actuation nasal spray,suspension (Flonase Allergy Relief) bupropion HCl 300 mg 24 hr tablet, 300 mg PO QDAY #90 tabs 02/12/24 extended release olmesartan 20 mg tablet 20 mg PO DAILY #90 tabs 02/12/24 paroxetine HCl 20 mg tablet 40 mg (2 x 20 mg) PO DAILY #180 02/12/24 tabs valacyclovir 500 mg tablet 500 mg PO BID #30 tabs 02/12/24 (Valtrex) albuterol sulfate 90 mcg/actuation 1 inh inhalation QID PRN shortness 03/05/24 aerosol inhaler of breath or wheezing #8.5 grams salmeterol 50 mcg/dose blister 1 inh inhalation Q12H #60 ea 03/05/24 powder for inhalation Allergies Allergy/AdvReac Type Severity Reaction Status Date / Time No Known Drug Allergies Allergy Verified 03/05/24 18:37 Patient History Medical History Other low back pain Major depressive disorder, recurrent, mild CKD (chronic kidney disease) stage 3, GFR 30-59 ml/min B12 deficiency Impaired fasting blood sugar Fracture Risk Assessment Score (FRAX) indicating greater than 3% risk for hip fracture Osteopenia Left renal stone Secondhand smoke exposure Microscopic hematuria 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 Abnormal renal function test Rosacea Osteoarthritis (~1999) Depression Anxiety (~2014) Restless leg syndrome (~2001) Carpal tunnel syndrome (~1999) Polio Mumps Measles Chicken pox Kidney stones Hemorrhoid Lymphoma Surgical History Anesthesia History of surgery (~2014) History of lymph node excision (~2014) Colon polyps (~2012) Status post endometrial ablation (~1999) History of splenectomy (~1969) Family History Father History of heart disease Mother Diabetes mellitus History of heart disease Hypertension Brother Cancer Sister Cervical cancer Grandfather History of heart disease Grandmother No problems noted. Grandfather No problems noted. Grandmother No problems noted. Family/Other Cancer Social History marital status: number of children: 1 household members: spouse Smoking Status: Current some day smoker Tobacco: How many years used: 16 second hand exposure: No alcohol intake: never substance use type: does not use caffeine: Yes (tea ) Smoking Status: Current some day smoker tobacco type: cigarettes Substance Use Type: does not use Exam Initial Vital Signs Initial Vital Signs: Vital Signs Temperature 98.7 F 03/05/24 18:43 Pulse Rate 89 03/05/24 18:43 Respiratory Rate 24 03/05/24 18:43 Blood Pressure 140/72 03/05/24 18:43 Pulse Oximetry 99 03/05/24 18:43 Oxygen Delivery Method Room Air 03/05/24 18:43 Const: Awake, alert, appears older than stated age, nontoxic appearing Cardiac: regular rate, regular rhythm RESP: unlabored, clear bilaterally, no wheezing Skin: Warm, Dry, intact, no rashes Neuro: AO x3, CN II-XII grossly intact, moves all extremities Course Orders Ordered: Discontinued Medications Methylprednisolone (Methylprednisolone 125 Mg/2 Ml Vial) 125 mg IV NOW ONE Stop: 03/05/24 19:34 Last Admin: 03/05/24 20:02 Dose: 125 mg Documented By: LUCRECIA Vital Signs Vital signs: Vital Signs - 8 hr 03/05/24 18:43 03/05/24 18:55 03/05/24 18:56 Temperature 98.7 F Pulse Rate 89 90 Respiratory Rate 24 Blood Pressure 140/72 130/64 Pulse Oximetry 99 96 Oxygen Delivery Method Room Air 03/05/24 18:56 03/05/24 19:00 03/05/24 19:00 Temperature Pulse Rate 84 82 Respiratory Rate Blood Pressure 128/66 Pulse Oximetry 98 98 Oxygen Delivery Method 03/05/24 19:19 03/05/24 19:30 03/05/24 19:30 Temperature 98.2 F Pulse Rate 87 Respiratory Rate Blood Pressure 140/63 Pulse Oximetry 98 97 Oxygen Delivery Method Room Air 03/05/24 20:00 03/05/24 20:08 03/05/24 20:08 Temperature Pulse Rate 84 81 Respiratory Rate Blood Pressure 133/74 Pulse Oximetry 96 97 Oxygen Delivery Method 03/05/24 20:30 03/05/24 20:43 03/05/24 20:43 Temperature Pulse Rate 80 72 Respiratory Rate Blood Pressure 147/79 H Pulse Oximetry 95 92 Oxygen Delivery Method 03/05/24 21:00 03/05/24 21:00 Temperature Pulse Rate 85 Respiratory Rate Blood Pressure 152/76 H Pulse Oximetry 95 Oxygen Delivery Method MDM - URI/Sore Throat Lab Data 03/05/24 19:55 03/05/24 19:55 Labs: Lab Results 03/05/24 Range/Units 19:55 WBC 17.7 H (4.5-11.0) X10^3/uL RBC 4.01 (4.0-5.2) X10^6/uL Hgb 13.1 (12.0-16.0) g/dL Hct 39.0 (36-46) % MCV 97.1 (80-100) fL MCH 32.6 (26-34) PG MCHC 33.6 (30-36) % RDW 14.9 H (11.6-14.8) % Plt Count 399 (150-400) X10^3/uL Neut % (Auto) 73.8 (50-75) % Lymph % (Auto) 15.1 L (25-40) % Mcdonald % (Auto) 9.2 (3-14) % Eos % (Auto) 1.3 L (2-4) % Baso % (Auto) 0.6 (0-2) % Neut # (Auto) 58227 H (1518-2486) /uL Lymph # (Auto) 2700 (1224-3886) /uL Mcdonald # (Auto) 1600 H (0-900) /uL Eos # (Auto) 200 (0-450) /uL Baso # (Auto) 100 (0-100) /uL Sodium 138 (137-145) mmol/L Potassium 3.6 (3.4-5.1) mmol/L Chloride 103 (98-107) mmol/L Carbon Dioxide 30 (22-32) mmol/L BUN 12 (7-17) mg/dL Creatinine 1.04 (0.52-1.04) mg/dL Estimated GFR 59 L (>60) mL/min BUN/Creatinine Ratio 11.5 (6-22) Glucose 100 (80-110) mg/dL Calcium 9.4 (8.4-10.2) mg/dL Total Bilirubin 0.5 (0.2-1.3) mg/dL AST 31 (14-36) IU/L ALT 18 (<35) IU/L Alkaline Phosphatase 120 (38-126) U/L Total Protein 7.3 (6.3-8.2) g/dL Albumin 4.2 (3.5-5.0) g/dL Globulin 3.1 (1.7-4.1) g/dL Albumin/Globulin Ratio 1.4 (1.0-2.8) Imaging Data CT scan - chest: Radiologist's Impression: PROCEDURE: CT CHEST WO CON INDICATIONS: PERSISTENT COUGH, FEVER, NORMAL CXR TECHNIQUE: Noncontrast 5 mm thick sections acquired from the pulmonary apices to the posterior costophrenic angles. 1 mm lung window, 5 mm thick coronal and sagittal and 7 mm axial MIP reformats were then acquired. For radiation dose reduction, the following was used: automated exposure control, adjustment of mA and/or kV according to patient size. COMPARISON: [facility], CT, CT CHEST ABD PEL W CON, 07/17/2019, 9:25. [facility], CR, XR CHEST 2V, 03/05/2024, 19:32. FINDINGS: Image quality: Diagnostic. Lower Neck: No enlarged lymph nodes. Thyroid: No thyroid nodules which require sonographic follow up, per consensus guidelines. Axillae: No enlarged lymph nodes. Chest Wall: Unremarkable. Bones: Unremarkable. Lungs and Pleura: No pneumothorax or pleural effusions. Scattered areas of mild tree-in-bud nodularity are most likely infectious or inflammatory in etiology. Heart: Heart size is normal. No pericardial effusion. Thoracic Vessels: The aorta and pulmonary arteries demonstrate normal size. Abandoned catheter is seen within the left subclavian and left innominate vein terminating in the upper superior vena cava, as seen on prior radiographs. Mediastinum and Marlee: No enlarged lymph nodes. Esophagus: No wall thickening. No hiatal hernia. Upper Abdomen: Mild nodular thickening of the adrenals. Spleen not visualized. Mild nodular soft tissue in the left upper abdomen unchanged when compared to the prior exam. Visualized upper abdomen solid organs and bowel loops appear normal. IMPRESSION: Scattered areas of mild tree-in-bud nodularity in the lungs may be related to a nonspecific infectious or inflammatory process. Approved by: Joel Moreno M.D. on 03/05/2024 at 21:11 MDM Narrative Medical decision making narrative: Patient presenting for persistent productive cough. Reportedly told that she had bronchitis by her primary care doctor. Not on any inhalers due to cost. Afebrile in the emergency department, saturating well on room air. Laboratory work, chest x-ray ordered. Laboratory work shows WBC count 17.7 of uncertain significance. Hemoglobin 13.1, platelet count 399, sodium 138, potassium 3.6, creatinine 1.04, normal liver enzymes. Chest x-ray did not show any acute abnormalities, however given patient's smoking history, history of lymphoma, reported fever, persistent symptoms a CT will be ordered. CT chest did not show any acute abnormalities. With otherwise normal workup and no indication of bacterial infection at this time antibiotics not given. Patient has not had any worsening in her symptoms, rather they are persistent and not improving, and so does not need initiation of antibiotics at this time. Based on patient's reported symptoms she qualifies for a short-acting and long- acting bronchodilator. These were sent to patient's pharmacy of choice. Discharge Plan Departure Patient Disposition: Home Clinical Impression: Bronchitis Instructions: DI for Acute Bronchitis Activity Restrictions/Additional Instructions: Your laboratory work and imaging today did not show any signs of pneumonia or recurrent cancer. Continue to work on decreasing your tobacco use. I would recommend following up with a lung doctor, a referral number has been provided. Prescriptions: New salmeterol 50 mcg/dose blister with device 1 inh inhalation Q12H Qty: 60 0RF albuterol sulfate 90 mcg/actuation HFA aerosol inhaler 1 inh inhalation QID PRN (Reason: shortness of breath or wheezing) Qty: 8.5 0RF No Action paroxetine HCl 40 mg tablet 40 mg PO DAILY lansoprazole [Prevacid] 30 mg capsule,delayed release(DR/EC) 30 mg PO DAILY fluticasone propionate [Flonase Allergy Relief] 50 mcg/actuation spray,suspension 1 spray intranasal DAILY Qty: 16 2RF Rx Instructions: administer into each nostril valacyclovir [Valtrex] 500 mg tablet 500 mg PO BID Qty: 30 3RF Rx Instructions: At onset of outbreak take 1 tab twice daily for 3 days (bottle contains enough pills for MORE than 1 outbreak) olmesartan 20 mg tablet 20 mg PO DAILY Qty: 90 1RF paroxetine HCl 20 mg tablet 40 mg PO DAILY Qty: 180 1RF bupropion HCl 300 mg tablet extended release 24 hr 300 mg PO QDAY Qty: 90 1RF Rx Instructions: Take one tablet once a day. Referrals: Davin Berry MD [Physician] - Gildardo Kulkarni ARNP [Primary Care Provider] - Stand Alone Forms: Patient Portal/API/Survey
[2024-03-05] MEDS: methylPREDNISolone 125 MG/2 ML VIAL IV (20:02)
[2024-03-05 20:15] LABS: Add Manual Diff / Slide Review NO; Basophils Absolute Auto 100 /uL (0-100); Basophils Percent Auto 0.6 % (0-2); Eosinophils Absolute Auto 200 /uL (0-450); Eosinophils Percent Auto 1.3 % (2-4); Hemoglobin 13.1 g/dL (12.0-16.0); Lymphocytes Absolute Auto 2700 /uL (1100-4500); Lymphocytes Percent Auto 15.1 % (25-40); Mean Corpuscular HGB Conc 33.6 % (30-36); Mean Corpuscular Hemoglobin 32.6 PG (26-34); Mean Corpuscular Volume 97.1 fL (80-100); Monocytes Absolute Auto 1600 /uL (0-900); Monocytes Percent Auto 9.2 % (3-14); Neutrophils Absolute Auto 13100 /uL (1500-7000); Neutrophils Percent Auto 73.8 % (50-75); Platelet Count 399 X10^3/uL (150-400); Red Blood Cell Count 4.01 X10^6/uL (4.0-5.2); Red Cell Distribution Width 14.9 % (11.6-14.8); White Blood Cell Count 17.7 X10^3/uL (4.5-11.0)
--- NOTE | 2024-03-05 20:17 | DI.CT.S_ITS ---
PROCEDURE: CT CHEST WO CON INDICATIONS: PERSISTENT COUGH, FEVER, NORMAL CXR TECHNIQUE: Noncontrast 5 mm thick sections acquired from the pulmonary apices to the posterior costophrenic angles. 1 mm lung window, 5 mm thick coronal and sagittal and 7 mm axial MIP reformats were then acquired. For radiation dose reduction, the following was used: automated exposure control, adjustment of mA and/or kV according to patient size. COMPARISON: [facility], CT, CT CHEST ABD PEL W CON, 07/17/2019, 9:25. [facility], CR, XR CHEST 2V, 03/05/2024, 19:32. FINDINGS: Image quality: Diagnostic. Lower Neck: No enlarged lymph nodes. Thyroid: No thyroid nodules which require sonographic follow up, per consensus guidelines. Axillae: No enlarged lymph nodes. Chest Wall: Unremarkable. Bones: Unremarkable. Lungs and Pleura: No pneumothorax or pleural effusions. Scattered areas of mild tree-in-bud nodularity are most likely infectious or inflammatory in etiology. Heart: Heart size is normal. No pericardial effusion. Thoracic Vessels: The aorta and pulmonary arteries demonstrate normal size. Abandoned catheter is seen within the left subclavian and left innominate vein terminating in the upper superior vena cava, as seen on prior radiographs. Mediastinum and Marlee: No enlarged lymph nodes. Esophagus: No wall thickening. No hiatal hernia. Upper Abdomen: Mild nodular thickening of the adrenals. Spleen not visualized. Mild nodular soft tissue in the left upper abdomen unchanged when compared to the prior exam. Visualized upper abdomen solid organs and bowel loops appear normal. IMPRESSION: Scattered areas of mild tree-in-bud nodularity in the lungs may be related to a nonspecific infectious or inflammatory process. Approved by: Joel Moreno M.D. on 03/05/2024 at 21:11
[2024-03-05 20:21] LABS: Alanine Aminotransferase 18 IU/L (<35); Albumin 4.2 g/dL (3.5-5.0); Albumin Globulin Ratio 1.4 (1.0-2.8); Alkaline Phosphatase 120 U/L (38-126); Aspartate Aminotransferase 31 IU/L (14-36); BUN Creatinine Ratio 11.5 (6-22); Bilirubin Total 0.5 mg/dL (0.2-1.3); Blood Urea Nitrogen 12 mg/dL (7-17); Calcium 9.4 mg/dL (8.4-10.2); Carbon Dioxide 30 mmol/L (22-32); Chloride 103 mmol/L (98-107); Estimated Glomerular Filt Rate 59 mL/min (>60); Globulin 3.1 g/dL (1.7-4.1); Glucose 100 mg/dL (80-110); HEMOLYSIS < 15 (0-50); Potassium 3.6 mmol/L (3.4-5.1); Sodium 138 mmol/L (137-145); Total Protein 7.3 g/dL (6.3-8.2)
== END 2024-03-05 21:44 | disposition home or self-care (01) ==
PROVIDERS: Emergency Provider Emergency Medicine; PCP Registered Nurse Diabetes Educator
DX: J20.9 Acute bronchitis, unspecified (principal); F17.210 Nicotine dependence, cigarettes, uncomplicated; R79.89 Other specified abnormal findings of blood chemistry; Z11.52 Encounter for screening for COVID-19
CPT/HCPCS: 0241U; 36415; 71046; 71250; 80053; 85025; 96374; 99284; J2919

== ENCOUNTER 2024-07-03 09:10 | Day surgery (SDC) | payer MEDICARE, SELFPAY ==
--- NOTE | 2024-07-03 | PATH_ITS ---
[facility] Accession Number: [id number] No. of containers..02 Tissue . 01 Material submitted: . PART A: colon - CECAL POLYP PART B: colon - ASCENDING COLON POLYP . 01 Diagnosis: A. CECAL POLYP: Tubular adenoma. . B. ASCENDING COLON POLYP: Tubular adenoma. . MRV 07/07/2024 1352 Local . 01 Electronically signed: . Jcarlos Mandel MD, PhD, Pathologist NPI- [id number] . 01 Gross description: . Part A: CECAL POLYP: Received in formalin is 1 fragment(s) of sotomayor, soft tissue measuring 0.5 x 0.3 x 0.2 cm submitted entirely in 1 cassette(s) Part B: ASCENDING COLON POLYP: Received in formalin are 3 fragment(s) of sotomayor, soft tissue measuring 0.4 x 0.3 x 0.1 cm to 0.7 x 0.4 x 0.2 cm submitted entirely in 1 cassette(s) /ADRIAN 07/06/2024 2214 Local . 01 Pathologist provided ICD-10: D12.0, D12.2 . 01 CPT . 691396, [id number] Specimen Comment: A courtesy copy of this report has been sent to [facility] Pathology Performed at: [address] [address], [place], [place] [id number] MD Adrian Watkins MD Phone: [phone]
[2024-07-03] MEDS: ONDANSETRON 4 MG/2 ML INJ IV (10:00)
[2024-07-03] MEDS: ALBUTEROL/IPRATROPIUM 3 ML AMPUL INH (10:00)
[2024-07-03] MEDS: FAMOTIDINE 20 MG/2 ML VIAL IV (10:00)
--- NOTE | 2024-07-03 10:03 | P.HP_ITS ---
History of Present Illness History of Present Illness Date Patient Seen: 07/03/24 Time Patient Seen: 10:03 Chief complaint: SDC Narrative: 69-year-old female with a past history of polyps. Her brother of colon cancer in his early 50s. She has had chronic reflux symptoms for 30 years. She had an EGD several years ago that was unremarkable, she has been taking double dose PPIs. She is never tried dietary modification. She is not aware of any foods that would exacerbate her symptoms in his not tried to eliminate those foods from her diet. She had an episode of bronchitis a few months ago. 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 Abnormal renal function test Rosacea Osteoarthritis (~1999) Depression Anxiety (~2014) Restless leg syndrome (~2001) Carpal tunnel syndrome (~1999) Polio Mumps Measles Chicken pox Kidney stones Hemorrhoid Lymphoma Surgical History Anesthesia History of surgery (~2014) History of lymph node excision (~2014) Colon polyps (~2012) Status post endometrial ablation (~1999) History of splenectomy (~1969) Family History Father History of heart disease Mother Diabetes mellitus History of heart disease Hypertension Brother Cancer Sister Cervical cancer Grandfather History of heart disease Grandmother No problems noted. Grandfather No problems noted. Grandmother No problems noted. Family/Other Cancer Social History marital status: number of children: 1 household members: spouse Smoking Status: Current some day smoker Tobacco: How many years used: 16 second hand exposure: No alcohol intake: never substance use type: does not use caffeine: Yes (tea ) Meds Home Medications and Allergies Home Medications Medication Instructions Recorded Confirmed Type paroxetine HCl 40 mg tablet 40 mg PO DAILY 06/24/23 06/17/24 History lansoprazole 30 mg capsule,delayed 30 mg PO DAILY 08/21/23 07/03/24 History release (Prevacid) fluticasone propionate 50 1 spray intranasal DAILY #16 grams 08/29/23 06/17/24 Rx mcg/actuation nasal spray,suspension (Flonase Allergy Relief) bupropion HCl 300 mg 24 hr tablet, 300 mg PO QDAY #90 tabs 02/12/24 07/03/24 Rx extended release olmesartan 20 mg tablet 20 mg PO DAILY #90 tabs 02/12/24 06/17/24 Rx paroxetine HCl 20 mg tablet 40 mg (2 x 20 mg) PO DAILY #180 02/12/24 07/03/24 Rx tabs valacyclovir 500 mg tablet 500 mg PO BID #30 tabs 02/12/24 06/17/24 Rx (Valtrex) albuterol sulfate 90 mcg/actuation 1 inh inhalation QID PRN shortness 03/05/24 07/03/24 Rx aerosol inhaler of breath or wheezing #8.5 grams azithromycin 250 mg tablet See Rx Instructions PO .COMPLEX #6 03/11/24 06/17/24 Rx tabs umeclidinium 62.5 mcg/actuation 1 inh inhalation DAILY #30 ea 03/29/24 06/17/24 Rx blister powder for inhalation (Incruse Ellipta) salmeterol 50 mcg/dose blister 1 inh inhalation Q12H #60 ea 05/06/24 06/17/24 Rx powder for inhalation sodium,potassium,mag sulfates 17.5 See Rx Instructions PO .COMPLEX 06/03/24 06/17/24 Rx gram-3.13 gram-1.6 gram oral soln #354 mL (Suprep Bowel Prep Kit) Allergies Allergy/AdvReac Type Severity Reaction Status Date / Time No Known Drug Allergies Allergy Verified 07/03/24 09:14 Review of Systems Review of Systems ROS: Yes All systems reviewed with the patient and are negative except as otherwise documented Exam Narrative Exam Narrative: Gen: NAD, sitting comfortably in bed, appears well HEENT: Sclera are anicteric, head is normocephalic and atraumatic, trachea is midline. CV: RRR, no JVD Resp: clear to auscultation bilaterally, equal chest wall movement bilaterally Abd: soft, nontender, normoactive bowel sounds Ext: no edema, full range of motion Neuro: Cranial nerves II-XII grossly intact, no focal deficits Skin: No erythema or ecchymosis Assessment & Plan Assessment and plan (1) Personal history of colonic polyps: Status: Acute Assessment & Plan narrative: Patient presents for colonoscopy Risks, benefits, alternatives to colonoscopy explained, including but not limited to bowel perforation or other serious complication requiring surgery at less than 1 in 5000 colonoscopies, abdominal pain, cramping or bleeding and less than 1% of colonoscopies, and the chances that we find a diagnosis that would require further intervention of about 2%. Patient agrees to proceed. Time-Based Coding :: [TOTAL MINUTES] spent with patient and on the chart (including review of chart, obtaining history, exam, reviewing outside data, placing orders, documenting exam and treatment plan, and counseling patient) on [DATE]. PROFEE Senior Lead Software Engineer Document charge(s): No
[2024-07-03 10:09] VITALS: BP 138/80; PULSE 86; RESP 16; TEMP 36.3; O2SAT 97; BMI 24.1
--- NOTE | 2024-07-03 10:33 | P.OP.COLON_ITS ---
Operative Date/Time/Diagnoses Date of procedure: 07/03/24 Time of procedure: 10:34 Pre-op diagnosis: Personal history of polyps Post-op diagnosis: same Procedure & Clinicians Study performed: Colonoscopy with cold snare polypectomy of cecal polyp in ascending colon polyp Same procedure as scheduled: Yes Indications: Personal history of polyps Surgeon: Preet Garcia Procedure Notes Procedure in detail: Time-out was performed. Mac was induced. Patient was placed in left lateral decubitus position. The perineum was inspected without any gross abnormality. Lubricated pediatric colonoscope was inserted and advanced to the cecum. The te rminal ileum was intubated. The colonoscope was withdrawn slowly inspecting the circumference of the colon. Small, subcentimeter polyps were noted and removed with cold snare polypectomy from the cecum and ascending colon. Both were retrieved. Very small polyps may have been missed, prep quality was adequate. Retroflexed view of the rectum showed small, non prolapsed nonbleeding internal hemorrhoids. The scope was withdrawn the patient was taken to PACU in good condition. Scope withdrawal time: 8 Findings: polyp(s) Specimen(s): other (1. Cecal polyp 2. Ascending colon polyp) Complications: none Impression: Benign polyps x2 Post-procedure Recommendations: Colonoscopy in 5 years Plan for aftercare: home Follow up: as needed Disposition: PACU
[2024-07-03 10:34] VITALS: BP 122/69; PULSE 72; RESP 14; TEMP 36.2; O2SAT 94
[2024-07-03 10:41] VITALS: BP 124/64; PULSE 75; RESP 15; O2SAT 97
[2024-07-03 10:47] VITALS: BP 125/67; PULSE 71; RESP 14; TEMP 36.2; O2SAT 94
== END 2024-07-03 11:16 | disposition home or self-care (01) ==
PROVIDERS: PCP Registered Nurse Diabetes Educator; Referring Provider Surgery; Visit Provider Surgery
PROC: 0DJD8ZZ Inspection of Lower Intestinal Tract, Via Natural or Artificial Opening Endoscopic (ICD-10-PCS; CPT 45378; principal; 2024-07-03 10:15)
DX: Z12.11 Encounter for screening for malignant neoplasm of colon (principal); Z86.0100 Personal history of colon polyps, unspecified; K64.8 Other hemorrhoids; D12.0 Benign neoplasm of cecum; D12.2 Benign neoplasm of ascending colon
CPT/HCPCS: 45385; J2405; J2704

== ENCOUNTER → 2024-10-12 15:37 | Outpatient (CLI) | payer MEDICARE, SELFPAY ==
[2024-10-12 17:33] LABS: Blood Urea Nitrogen 17 mg/dL (7-17); Calcium 9.5 mg/dL (8.4-10.2); Carbon Dioxide 27 mmol/L (22-32); Chloride 104 mmol/L (98-107); Estimated Glomerular Filt Rate 53 mL/min (>60); Glucose 122 mg/dL (70-99); HEMOLYSIS < 15 (0-50); Potassium 4.2 mmol/L (3.4-5.1); Sodium 139 mmol/L (137-145)
== END ==
LOC: LAB 15:38
PROVIDERS: PCP Registered Nurse Diabetes Educator; Referring Provider Registered Nurse Diabetes Educator; Visit Provider Registered Nurse Diabetes Educator
DX: N18.30 Chronic kidney disease, stage 3 unspecified (principal)
CPT/HCPCS: 36415; 80048

== ENCOUNTER → 2024-10-26 14:29 | Outpatient (CLI) | payer MEDICARE, SELFPAY ==
[2024-10-26 15:48] LABS: Appearance Urine UA SL CLOUDY; Bilirubin Urine UA NEGATIVE (NEGATIVE); Color Urine UA YELLOW; Glucose Urine UA NEGATIVE (Negative); Ketones Urine UA NEGATIVE (NEGATIVE); Leukocyte Esterase Urine UA NEGATIVE (NEGATIVE); Nitrite Urine UA NEGATIVE (Negative); Occult Blood Urine UA 2+ (Negative); Protein Urine UA NEGATIVE (Negative); Specific Gravity Urine UA 1.020 (1.000-1.035); Urobilinogen Urine UA 1.0 E.U./dL (0.2)
[2024-10-26 15:53] LABS: Add Manual Diff / Slide Review NO; Hematocrit 39.0 % (36-46); Hemoglobin 13.2 g/dL (12.0-16.0); Lymphocytes Absolute Auto 2800 /uL (1100-4500); Mean Corpuscular HGB Conc 33.9 % (30-36); Mean Corpuscular Hemoglobin 32.8 PG (26-34); Mean Corpuscular Volume 97.0 fL (80-100); Platelet Count 281 X10^3/uL (150-400)
[2024-10-26 16:03] LABS: pH Urine UA 5.5 (4.5-8.0)
[2024-10-26 16:08] LABS: Hemoglobin A1C% w Est Avg Glu 5.4 % (4.0-6.0)
[2024-10-26 16:08] LABS: Culture Indicated Urine Cult Not Indicated
[2024-10-26 16:48] LABS: Alanine Aminotransferase 15 IU/L (<35); Albumin 3.9 g/dL (3.5-5.0); Albumin Globulin Ratio 1.6 (1.0-2.8); Alkaline Phosphatase 71 U/L (38-126); Blood Urea Nitrogen 18 mg/dL (7-17); Calcium 9.3 mg/dL (8.4-10.2); Carbon Dioxide 29 mmol/L (22-32); Chloride 105 mmol/L (98-107); Estimated Glomerular Filt Rate 55 mL/min (>60); Globulin 2.4 g/dL (1.7-4.1); Glucose 88 mg/dL (70-99); HEMOLYSIS < 15 (0-50); Potassium 4.1 mmol/L (3.4-5.1); Sodium 138 mmol/L (137-145); Total Protein 6.3 g/dL (6.3-8.2)
[2024-10-26 16:51] LABS: Microalbumi Creatinin Ratio Ur 13.0 ug/mg CR (<30)
[2024-10-26 17:10] LABS: Free T4, Direct Thyroxine 0.90 ng/dL (0.78-2.19)
[2024-10-26 17:24] LABS: Thyroid Stimulating Hormone 1.28 uIU/mL (0.47-4.68)
[2024-10-26 17:43] LABS: Vitamin B12 249 pg/mL (239-931)
[2024-10-27 15:29] LABS: HIV 1 & 2 Ab/Ag 4th Gen Combo NEGATIVE (NEGATIVE); Hep C Virus Ab w/Reflex Quant NEGATIVE s/c (NEGATIVE)
== END ==
PROVIDERS: PCP Registered Nurse Diabetes Educator; Referring Provider Registered Nurse Diabetes Educator; Visit Provider Registered Nurse Diabetes Educator
DX: R63.4 Abnormal weight loss (principal); C85.13 Unspecified B-cell lymphoma, intra-abdominal lymph nodes; I10 Essential (primary) hypertension; R94.4 Abnormal results of kidney function studies; N18.31 Chronic kidney disease, stage 3a
CPT/HCPCS: 36415; 80053; 81001; 82043; 82570; 82607; 83036; 84439; 84443; 85025; 85651; 86140; 86803; 87389

== ENCOUNTER → 2024-11-12 10:03 | Outpatient (CLI) | payer MEDICARE, SELFPAY ==
--- NOTE | 2024-11-12 10:05 | DI.CT.S_ITS ---
PROCEDURE: CT CHEST ABD PEL W CON INDICATIONS: reeval 03/05/2024 CT findings, weight loss, smoker TECHNIQUE: After the administration of intravenous contrast, 5 mm thick sections acquired from the lung apices to the symphysis. 5 mm coronal and sagittal reformats were performed, with additional 7 mm MIP reformats through the lungs. For radiation dose reduction, the following was used: automated exposure control, adjustment of mA and/or kV according to patient size. COMPARISON: [facility], CT, CT IVP A/P W/WO, 06/13/2022, 15:13. [facility], CT, CT CHEST WO CON, 03/05/2024, 20:32. [facility], CT, CT CHEST ABD PEL W CON, 07/17/2019, 9:25. FINDINGS: Image quality: Diagnostic Lungs and pleura: [id number] emphysema. No airspace consolidation or pleural effusions. No suspicious focal mass or nodule. Mediastinum, heart, and esophagus: Moderate narrowing at the left subclavian artery with noncalcified plaque. Normal heart size. No enlarged lymph nodes by size criteria. Chest wall and thyroid: Unremarkable Liver: Unremarkable Gallbladder and biliary system: Distended CBD measuring 1.1 cm in the mid aspect, with distal mild tapering. Diameter is slightly increased from prior. Gallbladder is unremarkable. Pancreas: No ductal dilation. Spleen: Absent. Probable splenosis in the left abdomen again seen Adrenals: Bilateral thickening similar to prior Kidneys: No solid renal mass. Right upper pole nonobstructing calculus. No hydronephrosis Vessels and lymph nodes: The main portal vein appears patent. No abdominal aortic aneurysm. Moderate atherosclerotic disease. No lymphadenopathy by size criteria. Bowel and peritoneum: No small bowel obstruction. Moderate colonic fecal loading. Normal diameter appendix. Body wall: Unremarkable Pelvis: Under distended urinary bladder. Reproductive organs are unremarkable on limited CT evaluation. Bones: No aggressive appearing osseous abnormality. Degenerative changes are present. IMPRESSION: [id number] pulmonary emphysema. No suspicious focal mass or nodule in the lungs. Continued surveillance is suggested at least yearly given patient's presumed risk factors (low-dose screening CT would be ideal if eligible). Distended CBD at 1.1 cm. Correlate LFTs. Consider MRCP correlation if necessary. Probable peritoneal splenosis. No enlarged lymph nodes by size criteria. No CT evidence of disseminated metastases Other findings above Dictated by: John Jefferson M.D. on 11/14/2024 at 6:01 Approved by: John Jefferson M.D. on 11/14/2024 at 6:11
== END ==
PROVIDERS: PCP Registered Nurse Diabetes Educator; Referring Provider Registered Nurse Diabetes Educator; Visit Provider Registered Nurse Diabetes Educator
DX: C83.08 Small cell B-cell lymphoma, lymph nodes of multiple sites (principal); R93.89 Abnormal findings on diagnostic imaging of other specified body structures; R63.4 Abnormal weight loss; F17.200 Nicotine dependence, unspecified, uncomplicated; J43.9 Emphysema, unspecified; K83.8 Other specified diseases of biliary tract; N20.0 Calculus of kidney
CPT/HCPCS: 71260; 74177; Q9967

== ENCOUNTER → 2024-11-20 18:30 | Outpatient (CLI) | payer MEDICARE, SELFPAY ==
--- NOTE | 2024-11-20 18:33 | DI.MRI.S_ITS ---
PROCEDURE: MR AB PANCREATIC/MRCP PROTOCOL INDICATIONS: further eval CBD dilation, weight loss TECHNIQUE: Coronal HASTE through the abdomen, axial 2-D FLASH in- and [id number], and breath-hold T2 FSE with fat saturation through the biliary system and pancreas. Oblique coronal and axial thin-slice HASTE, radial thick-slab HASTE centered on the extrahepatic bile ducts. Intravenous secretin: Not requested. COMPARISON: [facility], CT, CT CHEST ABD PEL W CON, 07/17/2019, 9:25. MR, MR ABD MRCP, 12/18/2016, 8:38. [facility], CT, CT CHEST ABD PEL W CON, 11/12/2024, 11:04. FINDINGS: Image quality: Diagnostic. Gallbladder: Decompressed gallbladder without stones or wall thickening. Biliary ducts: Smooth intra and extrahepatic biliary dilatation. The common hepatic duct is 1.4 cm. Common bile duct is also 1.4 cm in diameter maximally. There is acute, smooth tapering of the common duct at the ampulla. No choledocholithiasis. No suspicious wall enhancement or thickening to suggest neoplasm. Pancreas: Normal size and signal without ductal dilatation. No abnormal enhancing mass. OTHER: Lung bases: No pleural effusions. Liver: No suspicious masses. No abnormal areas of restricted diffusion. Spleen: The spleen is absent. There are soft tissue nodules in the left upper quadrant suggesting splenosis. Adrenal Glands: No adrenal nodules. Kidneys and Ureters: Lobulated left kidney suggesting partial nephrectomy. T1 hyperintensity in the upper pole both kidneys consistent with proteinaceous cysts. No hydronephrosis. No visible hydroureter. Stomach and Bowel: Stomach and visible bowel loops are within normal limits. Peritoneum: No abnormal intraperitoneal fluid. No free air. Ventral Wall: No hernia. Abdominal Nodes: No retroperitoneal or mesenteric adenopathy by size criteria. Vessels: Aorta and inferior vena cava are normal in size. Bones: No aggressive osseous abnormality. IMPRESSION: There is chronic biliary dilatation. The caliber of the common duct has been stable since 2016. Mild progression of intrahepatic biliary dilatation, though correlation with LFTs is recommended to determine clinical significance and need for further intervention. Contracted gallbladder without stones. No pancreatic abnormalities. Dictated by: Yamel Tavares M.D. on 11/23/2024 at 10:28 Approved by: Yamel Tavares M.D. on 11/23/2024 at 11:05
== END ==
PROVIDERS: PCP Registered Nurse Diabetes Educator; Referring Provider Registered Nurse Diabetes Educator; Visit Provider Registered Nurse Diabetes Educator
DX: K83.8 Other specified diseases of biliary tract (principal); R63.4 Abnormal weight loss; R93.3 Abnormal findings on diagnostic imaging of other parts of digestive tract
CPT/HCPCS: 74183; A9579